=== PATIENT | male | born 1960 | race Caucasian/White ===

== ENCOUNTER 2017-02-18 12:22 | Emergency (ER) | payer BC ==
[~2017-02-18] VITALS: Ht 177.8 cm; Wt 86.3 kg
[~2017-02-18 12:22] MED LIST: BENICAR40 MG PO; WELLBUTRIN XL300 MG PO; ZOLOFT25 MG PO
[2017-02-18 13:02] LABS: HEMATOCRIT 48.3 % (38.0-50.0); MCH 34.1 PG (29.0-34.0); MCHC 35.6 G/DL (30.0-36.0); MCV 95.8 FL (86-99); RBC DIS.WIDTH-CV 12.8 % (11.8-14.6); RED BLOOD COUNT 5.04 M/uL (4.00-5.50); WHITE BLOOD COUNT 10.9 K/uL (4.1-10.2)
[2017-02-18 13:17] LABS: CHLORIDE 97 mEq/L (99-109); POTASSIUM 4.2 mEq/L (3.7-5.4); SODIUM 137 mEq/L (136-147)
[2017-02-18 13:19] LABS: GLUCOSE 90 mg/dL (70-99)
[2017-02-18 13:21] LABS: ANION GAP 14 MEQ/L (2-14); TOTAL BILIRUBIN 0.5 mg/dL (0.0-1.0)
[2017-02-18 13:23] LABS: ALKALINE PHOSPHATASE 45 IU/L (3-129); GFR ESTIMATE (CALCULATED) > 59 mL/min/
[2017-02-18 13:24] LABS: UREA NITROGEN (BUN) 15 mg/dL (9-23)
[2017-02-18 13:58] LABS: MEAN PLAT.VOLUME 9.7 uM^3 (9.0-12.4); PLAT.SUFFICIENCY ADEQUATE; PLATELET COUNT 230 K/uL (156-360)
[2017-02-18 14:04] LABS: ADD MIUA? YES; BILIRUBIN NEGATIVE; BLOOD NEGATIVE; COLOR YELLOW ((YELLOW)); GLUCOSE (STRIP) NEGATIVE; KETONES 5; LEUKOCYTES NEGATIVE; NITRITE NEGATIVE; PROTEIN (STRIP) 100; SPECIFIC GRAVITY 1.025 (1.000-1.030); UROBILINOGEN 0.2 MG/DL (0.2-1.0)
[2017-02-18 14:08] LABS: BACTERIA RARE /HPF; CALCIUM OXALATE CRYSTALS 1+ /HPF; EPITHELIAL CELLS RARE /HPF; MUCUS 2+ /LPF; RED BLOOD CELLS 0-5 /HPF (0-5); UCUL ADDED? NO; WHITE BLOOD CELLS 0-5 /HPF (0-5)
[2017-02-18 14:20] LABS: LIPASE 21 U/L (1.0-51.0)
[2017-02-18] MEDS ORDERED: CIPRO500 MG PO (14:44)
[2017-02-18] MEDS ORDERED: FLAGYL500 MG PO (14:44)
[2017-02-18] MEDS ORDERED: BENTYL20 MG PO (14:45)
[2017-02-18 15:06] VITALS: BP 106/78
== END 2017-02-18 15:08 | disposition home or self-care (01) ==
LOC: EME 12:22
DX: K52.9 Noninfective gastroenteritis and colitis, unspecified (principal); Z87.442 Personal history of urinary calculi; I10 Essential (primary) hypertension; Z87.891 Personal history of nicotine dependence
CPT/HCPCS: 74176; 80053; 81003; 83690; 85027; 99281; 99285; J1885; J7030